=== PATIENT | female | born 1935 | race Caucasian/White ===

== ENCOUNTER 2017-03-31 09:22 | Emergency (ER) | payer MEDICARE ==
[~2017-03-31] VITALS: Ht 157.4 cm; Wt 72.6 kg
[~2017-03-31 09:22] MED LIST: ACETAMINOPHEN650 MG RC; ASPIRIN81 M1 PO; BENADRYL25 M1 PO; CENTRAL VITE PO; CYCLOBENZAPRINE5 MG PO; DICYCLOMINE HCL20 MG PO; GUIATUSS AC PO; LEVEMIR100 U/ML SC; LEVOFLOXACIN500 MG PO; LISINOPRIL5 MG PO; LORAZEPAM0.5 MG PO; LOVASTATIN40 MG PO; MELATONIN5 M2 PO; MELOXICAM15 MG PO; METFORMIN1000 MG PO; NOVOLOG FLEX100 U/ML SC; OMEPRAZOLE20 MG PO; OXYBUTYNIN10 MG PO; SERTRALINE HYDR50 MG PO; VISION FORMULA1 TAB PO; VITAMIN B6100 MG PO; VITAMIN D31000 IU PO; VITAMIN E400 I1 PO; [UNRECOGNIZED DRUG - OTHER] PO
[2017-03-31] MEDS ORDERED: Meclizine25 MG PO (12:00)
== END 2017-03-31 12:19 | disposition home or self-care (01) ==
LOC: ED 09:22
DX: S01.111A Laceration without foreign body of right eyelid and periocular area, initial encounter (principal); Z79.82 Long term (current) use of aspirin; Z79.899 Other long term (current) drug therapy; W18.39XA Other fall on same level, initial encounter; Y93.89 Activity, other specified; Y92.89 Other specified places as the place of occurrence of the external cause; Y99.8 Other external cause status

== ENCOUNTER → 2017-09-12 | Outpatient (CLI) | payer MEDICARE ==
[2017-09-12] VITALS (10 sets, daily range): BP systolic 129–159; BP diastolic 48–63
[~2017-09-12] MED LIST changes: +Meclizine25 MG PO
[2017-09-12 19:46] LABS: BASO % 0.5 % (0.0-1.0); EOS # 0.2 10*3/uL (0.0-0.4); EOS % 2.7 % (1.0-4.0); HEMATOCRIT 25.5 % (37.0-47.0); HEMOGLOBIN 7.8 g/dl (12.0-16.0); LYMPH # 0.9 10*3/uL (1.3-4.4); MEAN CELL VOLUME 89.2 fl (81.0-99.0); MEAN CORPUSCULAR HGB 27.3 pg (27.0-31.0); MEAN CORPUSCULAR HGB CONC 30.6 g/dl (33.0-37.0); MEAN PLATELET VOLUME 8.5 fl (9.6-12.3); MONO # 1.1 10*3/uL (0.1-1.0); MONO % 13.8 % (3.0-9.0); NEUT # 5.9 10*3/uL (2.3-7.9); NEUT % 71.3 % (47.0-73.0); PLATELET COUNT AUTOMATED 525 10*3/uL (130-400); RED BLOOD COUNT 2.86 10*6/uL (4.10-5.10); WHITE BLOOD COUNT 8.3 10*3/uL (4.8-10.8)
== END | disposition home or self-care (01) ==
LOC: TRNFUSION 15:10
PROVIDERS: Internal Medicine
DX: D64.9 Anemia, unspecified (principal)

== ENCOUNTER 2020-07-11 13:44 | Inpatient (IN) | payer MEDICARE ==
[~2020-07-11] VITALS: Wt 78.9 kg
[2020-07-11 14:13] VITALS: BP 171/80
[2020-07-11 14:14] LABS: BASO # 0.1 10*3/uL (0.0-0.1); BASO % 1.2 % (0.0-1.0); EOS # 0.5 10*3/uL (0.0-0.4); HEMATOCRIT 43.6 % (37.0-47.0); LYMPH # 1.6 10*3/uL (1.3-4.4); LYMPH % 19.5 % (27.0-41.0); MEAN CELL VOLUME 102.6 fl (81.0-99.0); MEAN CORPUSCULAR HGB 31.5 pg (27.0-31.0); MEAN CORPUSCULAR HGB CONC 30.7 g/dl (33.0-37.0); MEAN PLATELET VOLUME 10.1 fl (9.6-12.3); MONO # 0.7 10*3/uL (0.1-1.0); MONO % 8.5 % (3.0-9.0); NEUT # 5.3 10*3/uL (2.3-7.9); NEUT % 64.4 % (47.0-73.0); PLATELET COUNT AUTOMATED 251 10*3/uL (130-400); RED BLOOD COUNT 4.25 10*6/uL (4.10-5.10); RED CELL DISTRI WIDTH 13.3 % (0-14.5); WHITE BLOOD COUNT 8.2 10*3/uL (4.8-10.8)
--- NOTE | 2020-07-11 14:18 | NUR ---
PATIENTS GRANDDAUGHTER CALLED AND STATES HER NAME IS "SHANNON" STATES THAT SHE IS MEDICAL POA AND WILL BE BRINGING DOWN THE NECESSARY PAPERWORK. SHE STATES THAT IF SHE NEEDED TO BE TRANSFERRED AND THE DOCTOR FELT IT WAS NECESSARY THAT SHE WANTED HER TRANSFERRED AND OVERIDE THE [facility] FOR THAT.
[2020-07-11 14:26] LABS: ACT PARTIAL THROMBO TIME 26.2 SECONDS (20.0-32.1); INTERNATIONAL NORM RATIO 0.9 (2.0-3.5)
[2020-07-11 14:32] LABS: ALBUMIN 3.5 gm/dl (3.1-4.5); ALKALINE PHOSPHATASE 222 U/L (45-117); BUN 29 mg/dl (7-24); CHLORIDE 114 mmol/L (98-107); CREATININE 1.19 mg/dL (0.55-1.02); POTASSIUM 5.6 mmol/L (3.5-5.1); SGOT/AST 20 IU/L (3-35); SGPT/ALT 22 U/L (12-78); SODIUM 139 mmol/L (136-145); TOTAL PROTEIN 7.3 gm/dL (6.4-8.2)
[2020-07-11 14:36] LABS: TROPONIN I < 0.015 ng/ml (<0.045)
--- NOTE | 2020-07-11 17:29 | NUR ---
PASSWORD SET UP WITH PATIENTS GRANDDAUGHTER "SHANNON".
--- NOTE | 2020-07-11 18:00 | NUR ---
PATIENT CARE TRANSFERRED OVER TO [facility]. REPORT GIVEN.
[2020-07-11 18:10] VITALS: BP 185/80
[2020-07-11 19:15] VITALS: BP 186/80
[2020-07-11 20:13] VITALS: BP 170/80
[2020-07-11] MEDS ORDERED: ADULT LOW DOSE81 MG PO (21:23)
[2020-07-11] MEDS ORDERED: CETIRIZINE10 MG PO (21:24)
[2020-07-11] MEDS ORDERED: BREO ELLIPTA 21 EACH INH (21:24)
[2020-07-11] MEDS ORDERED: DICYCLOMINE HCL10 MG PO (21:25)
[2020-07-11] MEDS ORDERED: [UNRECOGNIZED DRUG - CODE] IM (21:25)
[2020-07-11] MEDS ORDERED: COL-RITE100 M1 PO (21:26)
[2020-07-11] MEDS ORDERED: FERROUS SULFAT325 MG PO (21:27)
[2020-07-11] MEDS ORDERED: ESTRACE1 M1 PO (21:27)
[2020-07-11] MEDS ORDERED: Glimepiride1 MG PO (21:29)
[2020-07-11] MEDS ORDERED: ARNUITY ELLIPT50 MCG NAS (21:29)
[2020-07-11] MEDS ORDERED: ISORDIL10 M1 PO (21:32)
[2020-07-11] MEDS ORDERED: MULTIVITAMINS1 EAC5 PO (21:32)
[2020-07-11] MEDS ORDERED: LEVEMIR FL100 UNIT/1 SC (21:32)
[2020-07-11] MEDS ORDERED: ALTOPREV40 M1 PO (21:33)
[2020-07-11] MEDS ORDERED: ZESTRIL,PRINIVIL5 MG PO (21:33)
[2020-07-11] MEDS ORDERED: MELATONIN5 M1 SL (21:34)
[2020-07-11] MEDS ORDERED: GOOD NEIGHBOR M25 M1 PO (21:34)
[2020-07-11] MEDS ORDERED: MUCINEX ER600 MG PO (21:34)
[2020-07-11] MEDS ORDERED: ALEVE220 MG PO (21:35)
[2020-07-11] MEDS ORDERED: MYRBETRIQ25 M1 PO (21:35)
[2020-07-11] MEDS ORDERED: OMEPRAZOLE MAGN20 MG PO (21:36)
[2020-07-11] MEDS ORDERED: CARAFATE1 G1 PO (21:37)
[2020-07-11] MEDS ORDERED: POTASSIUM CHLO20 ME3 PO (21:37)
[2020-07-11] MEDS ORDERED: TOPIRAMATE25 M1 PO (21:37)
[2020-07-11] MEDS ORDERED: TRAMADOL HCL50 MG PO (21:38)
[2020-07-11] MEDS ORDERED: TRAD5TAB1 PO (21:38)
[2020-07-11] MEDS ORDERED: TRAZODONE150 MG PO (21:38)
[2020-07-11] MEDS ORDERED: TYLENOL325 M1 PO (21:39)
[2020-07-11] MEDS ORDERED: VESICARE5 MG PO (21:39)
--- NOTE | 2020-07-11 22:24 | NUR ---
PATIENT IS RESTING AT THIS TIME.
--- NOTE | 2020-07-11 23:50 | NUR ---
PT CONTINUES TO REST IN BED. NO SIGNS OF ACUTE DISTRESS NOTED AT THIS TIME.
[2020-07-12 00:57] VITALS: BP 180/88
[2020-07-12 05:55] VITALS: BP 177/81
--- NOTE | 2020-07-12 05:56 | NUR ---
PT IS RESTING IN BED ON BACK. NO SIGNS OF ACUTE DISTRESS NOTED AT THIS TIME.
--- NOTE | 2020-07-12 07:15 | NUR ---
REPORT RECEIVED FROM FAREED CANTOR AT THIS TIME. PATIENT LAYING IN BED APPEARS IN NO DISTRESS. WILL CONTINUE TO MONITOR.
[2020-07-12 07:50] VITALS: BP 186/88
--- NOTE | 2020-07-12 08:48 | NUR ---
[facility] [employer] CONTACTING SPEECH FOR EVALUATION PER VERBAL ORDER OF DR MASTERSON.
--- NOTE | 2020-07-12 08:50 | NUR ---
DR MASTERSON STATES NOT TO GIVE PATIENT HER ANYTHING BY MOUTH UNTIL SPEECH CONSULT IS DONE. ALSO STATES TO NOT GIVE PATIENT ANY OF HER DIABETIC MEDICATIONS SHE DOES NOT WANT THE PATIENTS BGL TO "DROP" PER HER. ALL MEDS HELD AT THIS TIME UNTIL SPEECH STUDY IS DONE. DR MASTERSON STATES THAT PATIENT IS TO HAVE SPEECH STUDY DONE BEFORE SHE CAN GO BACK TO [facility].
--- NOTE | 2020-07-12 09:02 | NUR ---
HOME PLANNING CONSULTANT SALESPERSON RECIEVED HOSPICE CONSULT. HOME PLANNING CONSULTANT SALESPERSON WILL FAX REFERRAL TO [facility] TO FOLLOW THE PATIENT AT [facility] WHERE SHE IS LTC.
--- NOTE | 2020-07-12 10:06 | NUR ---
SPEECH PATHOLOGY Patient seen for bedside swallowing evaluation this am to determine if patient can have po diet. Patient lying supine in bed upon arrival. She was lethergic and had to be roused several times. Bed elevated to 75 degrees as patient could not tolerate 90 degrees. She was oriented x2, however, she had difficulty responding to questions. She was able to follow a few commands, however, unable to complete oral motor exam due to poor attention/lethargy. Patient consumed 3 small bites of pureed applesauce, 1 small bite of sugar cookie, and 3 small sips of thin liquid water with no overt difficulty and no s/s aspiration. Patient can return to regular po diet. Consult speech if swallowing issues worsen. Thank you. Leonid Garza MA CCC-HARD METALS HAND ENGRAVER
--- NOTE | 2020-07-12 10:59 | NUR ---
REPORT CALLED TO DR MASTERSON FOR SPEECH. SHE ADVISED A MECHANICAL SOFT DIET.
--- NOTE | 2020-07-12 11:00 | NUR ---
Received call from Dr. Gonzalez. Patient is for a CT head and carotid doppler. Plan is to send patient back to [facility] with [facility]. fuel system maintenance worker following.
--- NOTE | 2020-07-12 12:05 | NUR ---
Spoke in length to Coreen Vang. The patients POA requested that we contact this family member in regards to the famlies wishes The family does not want any further testing or assessments at the hospital for the patient. They want the patient sent back to [facility] with Hospice. They would also like called by Dr Gonzalez. Message left for Dr Gonzalez on her cell phone regarding families wishes for patient and also contact from doctor
--- NOTE | 2020-07-12 12:13 | NUR ---
[employer] CRM DEVELOPER NOTIFIED OF PATIENT DISCHARGE. [employer] CRM DEVELOPER SPOKE WITH [facility] AND ARRANGED FOR TRANSPORT IN 15-20MINS. SAP CRM DEVELOPER CONTACTED WC [facility] AND TOLD HER. [employer] CRM DEVELOPER SPOKE WITH PATIENTS GRANDDAUGHTER SHANNON. [employer] CRM DEVELOPER NOTIFIED [facility] OF PATIENT DISCHARGE. SAP CRM DEVELOPER TO FAX DISCHARGE ORDERS TO [facility].
--- NOTE | 2020-07-12 12:25 | NUR ---
[facility] NOTIFIED OF PT'S RETURN.
--- NOTE | 2020-07-12 12:57 | NUR ---
PATIENT HAS BEEN DISCHARGED BY YAZMIN CANTOR AND TRANSPORT TO [facility] HAS BEEN ARRANGED.
--- NOTE | 2020-07-12 12:57 | NUR ---
[facility] HERE AT THIS TIME FOR PATIENT TRANSPORT.
== END 2020-07-12 23:21 | disposition hospice, home (50) | DRG 65 ==
LOC: ED 13:44 → EDHOLD 15:26
PROVIDERS: Emergency Medicine; ADMIT Internal Medicine; ATTEND Internal Medicine
DX: I63.9 Cerebral infarction, unspecified (principal); G81.94 Hemiplegia, unspecified affecting left nondominant side; E87.5 Hyperkalemia; E11.9 Type 2 diabetes mellitus without complications; M19.91 Primary osteoarthritis, unspecified site; Z96.652 Presence of left artificial knee joint; Z66 Do not resuscitate; I10 Essential (primary) hypertension; G30.1 Alzheimer's disease with late onset; F02.80 Dementia in other diseases classified elsewhere, unspecified severity, without behavioral disturbance, psychotic disturbance, mood disturbance, and anxiety; Z51.5 Encounter for palliative care; Z90.710 Acquired absence of both cervix and uterus; Z90.49 Acquired absence of other specified parts of digestive tract